=== PATIENT | male | born 1990 | race Caucasian/White ===

== ENCOUNTER 2019-02-20 03:26 | Emergency (ER) | payer SELFPAY ==
[~2019-02-20] VITALS: Ht 170.2 cm; Wt 75.9 kg
[2019-02-20 03:29] VITALS: Ht 170.2 cm; Wt 75.9 kg
[2019-02-20 04:51] VITALS: BP 112/76
== END 2019-02-20 04:51 | disposition home or self-care (01) ==
LOC: ED 03:26
DX: S01.81XA Laceration without foreign body of other part of head, initial encounter (principal); W22.8XXA Striking against or struck by other objects, initial encounter; Y93.41 Activity, dancing; Y92.89 Other specified places as the place of occurrence of the external cause; Y99.8 Other external cause status
CPT/HCPCS: J2001